=== PATIENT | female | born 1990 | race African-American/Black ===

== ENCOUNTER 2022-07-19 00:13 | Inpatient (IN) | payer OTHER ==
[~2022-07-19] VITALS: Ht 157.5 cm; Wt 57.6 kg
--- NOTE | 2022-07-19 00:21 | NUR ---
BIBS. MID STERNAL CP RADIAITING TO STOMACH. INTERMITENT, SHARP X 0800 AGGREVATED BY EATING. PAIN SCALE 10/10. PT A/OX4. TOLERATING R/A WELL WITH NO RESP DISTRESS. CONNECTED PT TO POX AND MONITOR. SAFETY MEASURES IN PLACE.
[2022-07-19] MEDS ORDERED: MORPHINE SULFATE INJ 4 MG/ML DISP.SYRIN ONE ×4 (00:42→14:10)
[2022-07-19] MEDS ORDERED: ONDANSETRON HCL/PF 4 MG/2 ML VIAL ONE ×2 (00:42→04:36)
--- NOTE | 2022-07-19 00:51 | NUR ---
RAC #20G S/L BLOOD COLLECTED AND SENT TO LAB
[2022-07-19] MEDS ORDERED: IV NS 0.9% 500 ML BAG IV ONE (01:00)
[2022-07-19] MEDS ORDERED: ONDANSETRON HCL/PF 4 MG/2 ML VIAL IVP ONE (01:00)
[2022-07-19] MEDS ORDERED: MORPHINE SULFATE INJ 2 MG/ML DISP.SYRIN IV ONE ×2 (01:00→04:30)
--- NOTE | 2022-07-19 01:00 | NUR ---
URINE COLLECTED AND SENT TO LAB
[2022-07-19 01:06] LABS: BASOPHILS % (AUTO) 0.2 % (0.0-2.0); EOSINOPHILS % (AUTO) 0.8 % (0.0-6.0); HEMATOCRIT 32 % (33-45); HEMOGLOBIN 10.8 g/dL (11.5-14.8); LYMPHOCYTES # (AUTO) 0.9 K/uL (0.8-4.8); LYMPHOCYTES % (AUTO) 20.6 % (20.0-44.0); MEAN CORPUSCULAR HGB CONC 34 g/dl (31.0-36.0); MEAN CORPUSCULAR VOLUME 94 fL (82-100); MONOCYTES # (AUTO) 0.3 K/uL (0.1-1.30); MONOCYTES % (AUTO) 6.8 % (2.0-12.0); NEUTROPHILS # (AUTO) 3.1 K/uL (1.8-8.9); NEUTROPHILS % (AUTO) 71.6 % (43.0-81.0); PLATELET COUNT (AUTO) 224 K/uL (150-450); RED BLOOD CELL COUNT(AUTO) 3.42 MIL/uL (4.0-5.2); WHITE BLOOD COUNT (AUTO) 4.3 K/uL (4.3-11.0)
[2022-07-19 01:07] LABS: BILIRUBIN,URINE 1+ (NEGATIVE); COLOR,URINE YELLOW (YELLOW); LEUKOCYTE ESTERASE ,URINE NEGATIVE (NEGATIVE); NITRITE, URINE NEGATIVE (NEGATIVE); PROTEIN,URINE 3+ mg/dl (NEGATIVE); UGLUCOSE NEGATIVE (NEGATIVE); UROBILINOGEN,URINE 0.2 EU/dL (0.2)
--- NOTE | 2022-07-19 01:10 | NUR ---
PT SIGNED WAIVER FORM; VERBALIZED UNDERSTANDING. RADIOLOGY AWARE
[2022-07-19 01:17] LABS: CALCIUM, SERUM 8.2 mg/dL (8.5-10.1); CARBON DIOXIDE 29 mmol/L (21-32); CHLORIDE 102 mmol/L (98-107); CREATININE 0.6 mg/dL (0.6-1.3); GLUCOSE 84 mg/dL (74-106); POTASSIUM 3.9 mmol/L (3.5-5.1); SODIUM SERUM 136 mmol/L (136-145); UREA NITROGEN, BLOOD 11 mg/dL (7-18)
--- NOTE | 2022-07-19 01:19 | NUR ---
BOTTOM POUNDER CEMENT SHOES AT PTS BEDSIDE
[2022-07-19 01:24] LABS: ALANINE AMINOTRANSFERASE 13 U/L (12-78); ALBUMIN 2.7 g/dL (3.4-5.0); ALKALINE PHOSPHATASE 61 U/L (46-116); ASPARTATE AMINOTRANSFERASE 15 U/L (15-37); BILIRUBIN,DIRECT 0.1 mg/dL (0.0-0.2); BILIRUBIN,TOTAL 0.4 mg/dL (0.2-1.0); LIPASE 94 U/L (73-393); TOTAL PROTEIN, SERUM 6.7 g/dL (6.4-8.2)
--- NOTE | 2022-07-19 01:27 | NUR ---
PT TAKEN TO CT VIA MIKEY
[2022-07-19 01:29] LABS: BACTERIA,URINE Rare /HPF (None Seen); SQUAMOUS EPITHELIAL CELL,UR 0-2 /HPF (None Seen); YEAST,URINE Few /HPF (None Seen)
[2022-07-19 01:30] LABS: MUCUS,URINE Moderate /LPF (None Seen)
--- NOTE | 2022-07-19 02:54 | NUR ---
CAST SHELL GRINDER AT PT'S BEDSIDE
[2022-07-19] MEDS ORDERED: PIPERACILLIN /TAZOBACTAM 3.375 G in IV D5W 50 ML IV ONE (04:30)
[2022-07-19] MEDS ORDERED: FLAGYL/NS RTU 500 MG/100 ML PIGGYBACK IV ONE (04:30)
[2022-07-19] MEDS ORDERED: ONDANSETRON HCL/PF 4 MG/2 ML VIAL IV ONE (04:30)
[2022-07-19] MEDS ORDERED: CIPROFLOXACIN IV RTU 400 MG in PREMIX 1 EA IV SCH (04:30)
--- NOTE | 2022-07-19 04:33 | NUR ---
BILLET WORKER AT PT'S BEDSIDE. COVID ANTIGEN AND MRSA SWAB COLLECTED AND SENT TO LAB
[2022-07-19] MEDS ORDERED: CIPROFLOXACIN IV RTU 200 ML IV ONE (04:35)
[2022-07-19] MEDS ORDERED: METRONIDAZOLE 500MG/ NS 100ML 100 ML IV ONE (04:35)
[2022-07-19] MEDS ORDERED: ZOLPIDEM TARTRATE 5 MG TABLET PO PRN (05:30)
[2022-07-19] MEDS ORDERED: Z GUARD REMEDY 4 OZ OINT TP PRN (05:30)
[2022-07-19] MEDS ORDERED: ONDANSETRON HCL/PF 4 MG/2 ML VIAL IVP PRN (05:30)
[2022-07-19] MEDS ORDERED: MAGNESIUM HYDROXIDE 30 ML UDC PO PRN (05:30)
[2022-07-19] MEDS ORDERED: MAG HYDROX/AL HYDROX/SIMETH 30 ML UDC PO PRN (05:30)
[2022-07-19] MEDS ORDERED: ACETAMINOPHEN 325 MG TABLET PO PRN (05:30)
[2022-07-19] MEDS ORDERED: PIPERACILLIN /TAZOBACTAM 3.375 G in IV D5W 50 ML IV SCH (06:00)
[2022-07-19] MEDS: IV NS 0.9% 1,000 ML IV PRN ×2 (09:14→18:07)
[2022-07-19] MEDS: MORPHINE SULFATE INJ 4 MG/ML DISP.SYRIN IV PRN ×4 (09:16→23:27)
[2022-07-19] MEDS: PIPERACILLIN /TAZOBACTAM 3.375 G in IV D5W 100 ML IV SCH ×2 (10:09→18:05)
--- NOTE | 2022-07-19 14:21 | NUR ---
BED ASSIGNED. 324.1 ADMITTING AWARE.
--- NOTE | 2022-07-19 15:00 | NUR ---
FULL REPORT GIVEN TO SHANELLE THEODORE. PATIENT TRANSFERRED TO BED 324-2.
[2022-07-19 16:00] VITALS: BP 133/90
--- NOTE | 2022-07-19 18:29 | NUR ---
"RN NOTE PATIENT WAS ADMITTED FROM ED. A/O X4, ABLE TO MAKE NEEDS KNOWN. AMBULATORY WITH STEADY GAIT. VS BP 133/90 | PA 73 | RR 20 | T 97F | ON RA SATURATING 100%. IV ACCESS ON R AC #20G, NS RUNNING AT 75 ML/HR, INTACT AND PATENT. CURRENTLY ON NPO STATUS. SAFETY MEASURES INITIATED. BED IN LOWEST POSITION, BRAKES LOCKED. SIDE RAILS UP X2. CALL LIGHT WITHIN REACH. WILL ENDORSE CONTINUITY OF CARE TO ONCOMING SHIFT."
--- NOTE | 2022-07-19 19:30 | NUR ---
MS RN OPENING NOTE RECEIVED PATIENT AWAKE IN BED. PATIENT IS A/O X4, ABLE TO MAKE NEEDS KNOWN. AMBULATORY WITH STEADY GAIT.ON RA . IV ACCESS ON R AC #20G, NS RUNNING AT 75 ML/HR, INTACT AND PATENT. CURRENTLY ON NPO STATUS. COMPLAIN OF 9/10 ABDOMINAL PAIN. WILL GIVE PAIN MEDICATION BLAZE. ALL SAFETY MEASURES IN PLACE. BED IN LOWEST POSITION. SIDE RAILS UP X2. CALL LIGHT WITHIN REACH. WILL CONTINUE TO MONITOR DURING SHIFT.
[2022-07-19 21:09] VITALS: BP 129/73
[2022-07-20] MEDS: PIPERACILLIN /TAZOBACTAM 3.375 G in IV D5W 100 ML IV SCH ×3 (01:52→18:08)
[2022-07-20] MEDS: MORPHINE SULFATE INJ 4 MG/ML DISP.SYRIN IV PRN ×4 (05:04→19:58)
[2022-07-20 05:56] LABS: BASOPHILS % (AUTO) 0.2 % (0.0-2.0); EOSINOPHILS % (AUTO) 3.4 % (0.0-6.0); HEMATOCRIT 30 % (33-45); HEMOGLOBIN 10.1 g/dL (11.5-14.8); LYMPHOCYTES # (AUTO) 0.6 K/uL (0.8-4.8); LYMPHOCYTES % (AUTO) 12.8 % (20.0-44.0); MEAN CORPUSCULAR HGB CONC 33 g/dl (31.0-36.0); MEAN CORPUSCULAR VOLUME 94 fL (82-100); MONOCYTES # (AUTO) 0.3 K/uL (0.1-1.30); MONOCYTES % (AUTO) 6.1 % (2.0-12.0); NEUTROPHILS # (AUTO) 3.5 K/uL (1.8-8.9); NEUTROPHILS % (AUTO) 77.5 % (43.0-81.0); PLATELET COUNT (AUTO) 199 K/uL (150-450); RED BLOOD CELL COUNT(AUTO) 3.22 MIL/uL (4.0-5.2); WHITE BLOOD COUNT (AUTO) 4.5 K/uL (4.3-11.0)
[2022-07-20 06:22] LABS: CALCIUM, SERUM 7.8 mg/dL (8.5-10.1); CREATININE 0.6 mg/dL (0.6-1.3); MAGNESIUM 1.4 mg/dL (1.8-2.4); PHOSPHORUS 4.1 mg/dL (2.5-4.9); POTASSIUM 3.3 mmol/L (3.5-5.1)
--- NOTE | 2022-07-20 06:43 | NUR ---
MS RN CLOSING NOTE PATIENT AWAKE IN BED. PATIENT IS A/O X4, ABLE TO MAKE NEEDS KNOWN. AMBULATORY WITH STEADY GAIT.ON RA . IV ACCESS ON R AC #20G, NS RUNNING AT 75 ML/HR, INTACT AND PATENT. CURRENTLY ON NPO STATUS. ALL DUE MEDS GIVEN ORDERED. ALL SAFETY MEASURES IN PLACE. BED IN LOWEST POSITION. SIDE RAILS UP X2. CALL LIGHT WITHIN REACH. WILL ENDORSE FOR CAM.
[2022-07-20 08:00] VITALS: BP 130/81
[2022-07-20] MEDS: Magnesium 1GM/D5W 100ML PREMIX 100 ML IV SCH ×4 (11:00→14:50)
[2022-07-20] MEDS: POTASSIUM CL. PREMIX PERIPHER. 50 ML IV SCH ×2 (14:58→16:31)
[2022-07-20 16:23] VITALS: BP 127/78
[2022-07-20] MEDS ORDERED: FAMO20TA8 PO (16:25)
[2022-07-20] MEDS ORDERED: SUCR1TAB31 PO (16:25)
[2022-07-20] MEDS ORDERED: CHOL100043 PO (16:25)
[2022-07-20] MEDS ORDERED: LISI10TA29 PO (16:25)
[2022-07-20] MEDS ORDERED: HYDR200T81 PO (16:25)
[2022-07-20] MEDS ORDERED: ACET-2605 PO (16:25)
--- NOTE | 2022-07-20 19:39 | NUR ---
RN CLOSING NOTE PATIENT RECEIVED IN BED AND AWAKE. A/O X4 AND ABLE TO VERBALIZE ALL NEEDS. AMBULATES TO/FROM BATHROOM WELL WITH NO ASSIST. IV ACCESS TO RAC INTACT AND PATENT. MAGNESIUM AND POTASSIUM REPLACED ON SHIFT; TOLERATED WELL. IV ABX THERAPY ADMINISTERED AND TOLERATED WELL WITH NO S/SX OF ADVERSE REACTIONS. PATIENT C/O GENERALIZED PAIN. PRN MORPHINE GIVEN VIA IV PUSH-MEDICATION EFFECTIVE. NO S/SX OF DISTRESS OBSERVED OR REPORTED. NPO DIET ADVANCED TO REGULAR; TOLERATED WELL ON SHIFT. SAFETY MEASURES INTACT WITH BED LOW AND LOCKED. CALL LIGHT WITHIN REACH. WILL CONT TO MONITOR.
[2022-07-20 20:00] VITALS: BP 131/79
--- NOTE | 2022-07-20 20:05 | NUR ---
MS RN OPENING NOTES: RECEIVED PATIENT SLEE P IN BED COMFORTABLY, AROUSABLE TO VERBAL STIMULI, BE DIN LOW POSITION CALL LIGHTS WITHIN REACH, NO COMPLAIN OF PAIN AND DISCOMFORT AT THIS TIME, ON RA SATURATING WELL, PATIENT IS A/OX4 ABLE TO MAKE NEEDS KNOWN, AMBULATORY, IV LINE AT RAC#22 WITH ONGOING 0.9NSS@75ML/HR INFUSING WELL, PATIENT KEPT CLEAN AND DRY ALL NEEDS MET WILL CONTINUE TO MONITOR.
[2022-07-21] MEDS: MORPHINE SULFATE INJ 4 MG/ML DISP.SYRIN IV PRN ×3 (00:20→09:17)
[2022-07-21] MEDS: PIPERACILLIN /TAZOBACTAM 3.375 G in IV D5W 100 ML IV SCH ×2 (01:59→09:05)
[2022-07-21] MEDS: IV NS 0.9% 1,000 ML IV PRN (06:10)
--- NOTE | 2022-07-21 06:36 | NUR ---
MS TIMMONS CLOSING NOTES: PATIENT SLEEP IN BED COMFORTABLY, AROUSABLE TO VERBAL STIMULI, BED IN LOW POSITION CALL LIGHTS WITHIN REACH, NO COMPLAIN OF PAIN AND DISCOMFORT AT THIS TIME, ON ROOM AIR SATURATING WELL, NO SOB WAS OBSERVED, PATIENT IS A/O X3 ABLE TO MAKE NEEDS KNOWN, AMBULATORY TO BEDSIDE COMMODE WITH ASSIST, PATIENT KEPT CLEAN AND DRY ALL NEEDS MET ENDORSE TO INCOMING SHIFT. Addendum: 07/21/22 at 0642 by LOUIS ONTIVEROS RN WRONG PATIENT FOR CLOSING NOTES:
--- NOTE | 2022-07-21 06:42 | NUR ---
MS RN CLOSING NOTES: PATIENT SLEEP IN BED COMFORTABLY, BED IN LOW POSITION CALL LIGHTS WITHIN REACH, NO COMPLAIN OF PAIN AND DISCOMFORT AT THIS TIME, ON ROOM AIR SATURATING WELL, PATIENT IS A/OX4 ABLE TO MAKE NEEDS KNOWN, AMBULATORY, ON PAIN MANAGEMENT, PATIENT KEPT CLEAN AND DRY ALL NEEDS MET ENDORSE TO INCOMING SHIFT.
[2022-07-21 06:49] LABS: CALCIUM, SERUM 7.4 mg/dL (8.5-10.1); CREATININE 0.5 mg/dL (0.6-1.3); MAGNESIUM 1.8 mg/dL (1.8-2.4); POTASSIUM 3.4 mmol/L (3.5-5.1)
--- NOTE | 2022-07-21 07:49 | NUR ---
MS RN OPENING NOTES: RECEIVED PATIENT ASLEEP IN BED, EASILY ROUSED. PATIENT IS A/OX4, ABLE TO MAKE NEEDS KNOWN, AMBULATORY. PT IS ON RA SATURATING WELL. IV ACCESS AT RAC#22 RUNNING NS@75ML/HR INFUSING WELL. SAFETY MEASURES IN PLACE, BED IN LOW POSITION CALL LIGHT AND TABLE WITHIN REACH, WILL CONT WITH PLAN OF CARE DURING SHIFT.
[2022-07-21 08:00] VITALS: BP 118/69
[2022-07-21] MEDS ORDERED: POTASSIUM CHLORIDE 20 MEQ TAB.PRT.SR PO ONE (11:00)
[2022-07-21] MEDS ORDERED: HYDR-3976 PO (11:56)
[2022-07-21 16:00] VITALS: BP 136/90
--- NOTE | 2022-07-21 16:00 | NUR ---
MS RN DC NOTES: PT IS CLINICALLY STABLE FOR DC. VITALS WNL, NO S/S OF SOB AND CUTE DISTRESS IN RA. DC INSTRUCTIONS, NEW MEDICATION AND BELONGINGS CHECKLIST DISCUSSED AND SIGNED BY PT. DC PACKET GIVEN TO PT. ID BAND AND IV ACCESS REMOVED. PT LEFT UNIT WITH MOM.
== END 2022-07-21 15:30 | disposition home or self-care (01) | DRG 249 ==
LOC: ER 00:18 → TRANSITION 06:50 → MED 14:41
PROVIDERS: ADMIT Internal Medicine
DX: A08.4 Viral intestinal infection, unspecified (principal); K62.89 Other specified diseases of anus and rectum; N39.0 Urinary tract infection, site not specified; Z20.822 Contact with and (suspected) exposure to COVID-19; L93.0 Discoid lupus erythematosus
CPT/HCPCS: 36415; 71045-TC; 80048-TC; 80061-TC; 80076-TC; 81001; 83605-TC; 83690-TC; 83735-TC; 84100-TC; 84484-TC; 84703-TC; 85025-TC; 85730-TC; 87040-TC; 87081-TC; 87086-TC; A4216; C9803; G0378; J0744; J2270; J2405; J2543; J3475; J3480; J7030; J7060